=== PATIENT | male | born 1965 ===

== ENCOUNTER 2019-03-05 03:45 | Emergency (ER) | payer SELFPAY ==
[2019-03-05] MEDS ORDERED: LIDOCAINE 1% MPF 30 ML VIAL ONE (04:07)
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
[2019-03-05] MEDS ORDERED: CEFAZOLIN SODIUM 1 GM/VIAL ONE (05:36)
[2019-03-05] MEDS ORDERED: HYDROCODONE/APAP 10/325 TAB ONE (05:36)
[2019-03-05] MEDS ORDERED: CEPHALEXIN 250 MG CAP ONE (05:37)
[2019-03-05] MEDS ORDERED: ONDANSETRON 4 MG (ODT) TAB ONE (05:37)
--- NOTE | 2019-03-05 10:41 | RAD REPORT ---
EXAM DESCRIPTION: CT MAXILLOFACIAL WITHOUT CONTRAST 03/05/2019 CLINICAL HISTORY: Facial pain and deformity. COMPARISON: None. TECHNIQUE: Axial CT imaging of the facial bones and soft tissues. Reformatted coronal and sagittal images obtained. Examination was performed according to our departmental dose-optimization program, which includes aut omated exposure control, adjustment of the mA and/or kV according to patient size and/or use of itera tive reconstruction technique. FINDINGS: There is significant left periorbital edema with bubbles of subcutaneous emphysema. The gl obes are intact. There is minimal air in the superior left orbit in the extraconal space. There is mi ld deformity of the left nasal bone compatible with age-indeterminate fracture. There is a complex fr acture of the left medial orbital wall which may be an old injury. There is an inferior left orbital floor fracture with herniation of fat and downward displacement of the left inferior rectus into the defect. This is also an age-indeterminate injury. Mucosal thickening in the left maxillary antrum. Fl uid level in the left axillary sinus. Retention cyst versus polyp in the right maxillary sinus. Ethmo id sinus mucosal disease noted. No fracture within the pterygoid plates or zygoma bilaterally. The mandible is intact. Temporomandibu lar joints are intact. There is left facial subcutaneous edema. The parapharyngeal soft tissues appear normal. IMPRESSION: 1. Marked left periorbital edema with subcutaneous emphysema suggestive of abscess. No drainable fluid collection is seen. 2. Multiple fractures involving the left nasal bone, left medial and inferior orbital floor. These ma y be old injuries. 3. Left maxillary sinusitis versus hemorrhage. Right maxillary sinus retention cyst versus polyp. Eth moid sinus mucosal disease. Electronically signed by: Yaritza Virgen DO 03/05/2019 6:02 AM CDT Due to temporary technical issues with the PACS/Fluency reporting system, reports are being signed by the in house radiologist as a courtesy to ensure prompt reporting. The interpreting radiologist is f sameerly responsible for the content of the report.
--- NOTE | 2019-03-05 10:42 | RAD REPORT ---
EXAM DESCRIPTION: CT Head Without Intravenous Contrast. CT Cervical Spine Without Intravenous Con trast. CLINICAL HISTORY: PAIN TECHNIQUE: Axial computed tomography images of the head/brain and cervical spine without intravenous contrast. Sagittal and coronal reformatted images were created and reviewed. This CT exam was pe rformed using one or more of the following dose reduction techniques: automated exposure control, a djustment of the mA and/or kV according to patient size, and/or use of iterative reconstruction techn ique. COMPARISON: No relevant prior studies available. FINDINGS: Limitations: None. Brain: Unremarkable. No hemorrhage. No significant white matter disease. No edema. Ventricles: Unremarkable. No ventriculomegaly. Skull: No acute fracture. Sinuses: Unremarkable as visualized. No acute sinusitis. Mastoid air cells: Unremarkable as visualized. No mastoid effusion. Vertebrae: Unremarkable. No acute fracture. Normal alignment. Discs/spinal canal/neural foramina: No significant abnormality noted. No spinal canal stenosis . Soft tissues: Left periorbital soft tissue hematoma noted. IMPRESSION: 1. Left periorbital soft tissue hematoma noted. 2. No acute change in the brain. 3. No cervical fracture or subluxation. Electronically signed by: Shonna Camacho MD 03/05/2019 5:57 AM CDT Due to temporary technical issues with the PACS/Fluency reporting system, reports are being signed by the in house radiologist as a courtesy to ensure prompt reporting. The interpreting radiologist is f ully responsible for the content of the report.
== END 2019-03-05 06:37 | disposition home or self-care (01) ==
LOC: ER 03:45
PROC: 0JQ10ZZ Repair Face Subcutaneous Tissue and Fascia, Open Approach (ICD-10-PCS; principal; 2019-03-05)
DX: S01.112A Laceration without foreign body of left eyelid and periocular area, initial encounter (principal); S02.2XXA Fracture of nasal bones, initial encounter for closed fracture; S02.32XA Fracture of orbital floor, left side, initial encounter for closed fracture; H11.32 Conjunctival hemorrhage, left eye; W50.0XXA Accidental hit or strike by another person, initial encounter; Y93.89 Activity, other specified; Y92.149 Unspecified place in prison as the place of occurrence of the external cause
CPT/HCPCS: 70450; 70486; 72125; 76377; 96372; 99284; J0690